=== PATIENT | male | born 1980 | race Caucasian/White ===

== ENCOUNTER 2017-08-19 10:25 | Emergency (ER) | payer SELFPAY ==
[~2017-08-19] VITALS: Ht 190.5 cm; Wt 95.0 kg
[~2017-08-19 10:25] MED LIST: CHLO.12%30 SWISH-SPIT; CLIN150 PO; IBUP800T23 PO; MMW SWISH-SPIT; PRED20 PO
[2017-08-19 10:28] VITALS: BP 121/71; PULSE 82; TEMP 97.6; O2SAT 99
[2017-08-19] MEDS ORDERED: SODIUM CHLORIDE 0.9% FLUSH 10 ML FLUSH IV FLUSH PRN (11:15)
--- NOTE | 2017-08-19 11:26 | PD ---
HPI Chief Complaint: GI Complaint Time Seen by Provider: 10:56 Travel History International Travel<30 days: No Contact w/Intl Traveler<30days: No Traveled to known affect area: No History of Present Illness HPI 37-year-old male presents the ED for evaluation of 3 day history of constipation. Patient states that he did not eat for 1 day and despite resuming eating has not began to have bowel movements. He endorses left lower quadrant tenderness and cramping pain. He states that the pain is maximally 10 , relieved by bowel movement. Patient states that he had a few mixed stools in the waiting room. He states he has not yet had a solid stool. Denies melena, hematochezia, BRBPR. Denies dysuria, hematuria, suprapubic pain. Denies fevers , chills, nausea, vomiting. He took mag citrate that he bought at [employer] last night. He states he had one previous episode like this last year that was resolved with mag citrate. He denies family history of GI cancers. He has never had a endoscopy. [facility] Past Medical History Medical History: Denies Significant Hx Diminished Hearing: No Tetanus Vaccination: > 5 Years Influenza Vaccination: No Past Surgical History Surgical History: No Previous Surgery Social History Alcohol Use: Yes Tobacco Use: Yes Substance Use: Yes (weed ) Allergies-Medications (Allergen,Severity, Reaction): Coded Allergies: No Known Allergies (Unverified Adverse Reaction, Unknown, 08/19/17) Reported Meds & Prescriptions Reported Meds & Active Scripts Active Reglan (Metoclopramide HCl) 5 Mg Tab 5 Mg PO TID Review of Systems Except as stated in HPI: all other systems reviewed are Neg Physical Exam Narrative GENERAL: Well-nourished, well-developed anxious white male in no acute distress. SKIN: Focused skin assessment warm/dry. HEAD: Normocephalic. EYES: No scleral icterus. No injection or drainage. NECK: Supple, trachea midline. No JVD or lymphadenopathy. CARDIOVASCULAR: Regular rate and rhythm without murmurs, gallops, or rubs. RESPIRATORY: Breath sounds clear and equal bilaterally. No accessory muscle use. GASTROINTESTINAL: Abdomen soft, nondistended. Tender to palpation in the left lower quadrant. No suprapubic tenderness. Hyperactive bowel sounds. RECTAL EXAM: No masses or tenderness, stool is brown. Guaiac negative. MUSCULOSKELETAL: No cyanosis, or edema. BACK: Nontender without obvious deformity. No CVA tenderness. Data Data Last Documented VS Vital Signs Date Time Temp Pulse Resp B/P (MAP) Pulse Ox O2 Delivery O2 Flow Rate FiO2 08/19/17 10:28 97.6 82 121/71 (88) 99 Orders Orders Iv Access Insert/Monitor (08/19/17 11:05) Ecg Monitoring (08/19/17 11:05) Oximetry (08/19/17 11:05) Sodium Chloride 0.9% Flush (Ns Flush) (08/19/17 11:15) Abdomen, Upright Only (08/19/17 11:05) Metoclopramide (Reglan) (08/19/17 12:00) Ed Discharge Order (08/19/17 11:51) [facility] Medical Decision Making Medical Screen Exam Complete: Yes Emergency Medical Condition: Yes Differential Diagnosis constipation versus fecal impaction versus less likely diverticulitis versus other Narrative Course 37-year-old male presents the ED for evaluation of 3 day history of constipation. Patient states that he did not eat for 1 day and despite resuming eating has not began to have bowel movements. He endorses left lower quadrant tenderness and cramping pain. He did mag citrate last night and had a few mixed bowel movements in the ED. Vitals reviewed. On exam the patient is nontoxic-appearing. Bowel sounds are hyperactive. He does have some tenderness in the left lower quadrant. Patient immediately had a mixed bowel movement right after exam. Rectal exam reveals no fecal impaction, masses or tenderness. Guaiac negative. I discussed the exam with the patient. He states that he is having improvement of his symptoms and is reassured by the fact that he is having bowel movements now. I offered to continue the workup with labs and possible CT of the belly to rule out diverticulitis. I offered the patient in upright x-ray to visualize any extreme constipation. This showed multiple air-fluid levels which is consistent with ileus. He is satisfied with this evaluation. He is agreeable to watchful waiting. He was given strict instructions to return to the ED if symptoms worsen. I believe that he is reliable for follow-up. The patient is stable and discharged home. [facility] Point of Care Internal Pos. & Neg. Controls: Passed Fecal Specimen Occult Blood: Negative Diagnosis Primary Impression: Constipation Qualified Codes: K59.00 - Constipation, unspecified Additional Impression: Abdominal cramping Referrals: Primary Care Physician Additional Instructions: Rest, hydrate. Return to normal, gentle activities as tolerated. Eat a well-balanced diet that includes plenty of fiber and fluids. Follow-up with the primary care provider. Return to the ED for worsening symptoms or any urgent or emergent medical condition. Scripts Metoclopramide (Reglan) 5 Mg Tab 5 MG PO TID, #9 TAB 0 Refills Prov: Julien Lopez MD 08/19/17 Disposition: 01 DISCHARGE HOME Condition: Stable Mohini Zhang August 19, 2017 11:26
--- NOTE | 2017-08-19 11:36 | RADRPT ---
EXAM DATE/TIME: 08/19/2017 11:28 [facility] COMPARISON: No previous studies available for comparison. INDICATIONS : Constipation and nausea. MEDICAL HISTORY : None. SURGICAL HISTORY : None. ENCOUNTER: Initial ACUITY: 3 days PAIN SCORE: 9/10 LOCATION: Left abdomen FINDINGS: A single erect view of the abdomen demonstrates the lower lungs to be clear. No evidence of free int raperitoneal gas. There are several air-fluid levels noted in predominately the colon without signifi cant dilatation. No significant dilatation of the small bowel is seen. CONCLUSION: Several air-fluid levels are seen throughout the colon suggestive of an ileus. Isak Riggs MD on August 19, 2017 at 11:32 Board Certified Radiologist. This report was verified electronically.
[2017-08-19] MEDS ORDERED: REGL5TAB PO (11:50)
[2017-08-19] MEDS ORDERED: METOCLOPRAMIDE HCL 10 MG TAB PO ONE (12:00)
== END 2017-08-19 12:29 | disposition home or self-care (01) ==
LOC: NEPD 10:25
DX: K59.00 Constipation, unspecified (principal); Z72.0 Tobacco use
CPT/HCPCS: 74018; 99284

== ENCOUNTER 2017-08-21 12:07 | Inpatient (IN) | payer SELFPAY ==
[2017-08-21] VITALS (8 sets, daily range): BP systolic 122–150; BP diastolic 67–85; PULSE 84–94; RESP 16–24; TEMP 98.5–99.1; O2SAT 96–100
[~2017-08-21] VITALS: Ht 190.5 cm; Wt 94.9 kg
[~2017-08-21 12:07] MED LIST changes: -CHLO.12%30 SWISH-SPIT; -CLIN150 PO; -IBUP800T23 PO; -MMW SWISH-SPIT; -PRED20 PO; +REGL5TAB PO
[2017-08-21] MEDS ORDERED: SODIUM CHLOR 0.9% 1000 ML INJ 1,000 ML IV SCH (12:21)
[2017-08-21] MEDS ORDERED: MAGNSOL2 PO (12:28)
[2017-08-21] MEDS ORDERED: DIATRIZOATE MEGLUM/DIATRIZOATE SOD 9 ML CUP ONE (12:29)
[2017-08-21] MEDS ORDERED: KETOROLAC TROMETHAMINE 30 MG/ML (IVP) VIAL IVP ONE (12:30)
[2017-08-21] MEDS ORDERED: SODIUM CHLORIDE 0.9% FLUSH 10 ML FLUSH IV FLUSH PRN ×2 (12:30→16:45)
--- NOTE | 2017-08-21 13:07 | PD ---
HPI Chief Complaint: GI Complaint Time Seen by Provider: 12:18 Travel History International Travel<30 days: No Contact w/Intl Traveler<30days: No Traveled to known affect area: No History of Present Illness HPI 37-year-old male with no significant medical history presents emergency department for evaluation of lower abdominal pain worsening over the last 3-4 days. Patient was seen and evaluated 2 days ago for constipation. He was discharged home and states he has been having loose bowel movements since then. He reports over the last 2 days he has developed intermittent hot flashes, fevers, T-max 101 last evening. He states his pain has become more intense and expands across the lower abdomen. He denies hematochezia or hematemesis. Denies any nausea or vomiting. Has no history of colitis or bright diverticulitis however his mother does. He has no other symptoms to report at this time. [facility] Past Medical History Medical History: Denies Significant Hx Diminished Hearing: No Tetanus Vaccination: Unknown Past Surgical History Surgical History: No Previous Surgery Social History Alcohol Use: Yes Tobacco Use: Yes Substance Use: Yes (MARIJUANA) Allergies-Medications (Allergen,Severity, Reaction): Coded Allergies: No Known Allergies (Unverified Adverse Reaction, Unknown, 08/19/17) Reported Meds & Prescriptions Reported Meds & Active Scripts Active Reglan (Metoclopramide HCl) 5 Mg Tab 5 Mg PO TID Reported Magnesium Citrate Liq (Magnesium Citrate) 300 Ml Liq 300 Ml PO DIRECTED Review of Systems Except as stated in HPI: all other systems reviewed are Neg Physical Exam Narrative GENERAL: Well-nourished male patient, appears nontoxic and without distress SKIN: Focused skin assessment warm/dry. HEAD: Atraumatic. Normocephalic. EYES: Pupils equal and round. No scleral icterus. No injection or drainage. ENT: No nasal bleeding or discharge. Mucous membranes pink and moist. NECK: Trachea midline. No JVD. CARDIOVASCULAR: Regular rate and rhythm. No murmur appreciated. RESPIRATORY: No accessory muscle use. Clear to auscultation. Breath sounds equal bilaterally. GASTROINTESTINAL: Abdomen soft, nondistended. Tenderness elicited palpation across the lower abdomen, greater on the right than the left with moderate guarding.. Hepatic and splenic margins not palpable. MUSCULOSKELETAL: No obvious deformities. No clubbing. No cyanosis. No edema. NEUROLOGICAL: Awake and alert. No obvious cranial nerve deficits. Motor grossly within normal limits. Normal speech. PSYCHIATRIC: Appropriate mood and affect; insight and judgment normal. Data Data Last Documented VS Vital Signs Date Time Temp Pulse Resp B/P (MAP) Pulse Ox O2 Delivery O2 Flow Rate FiO2 08/21/17 15:19 13 08/21/17 12:27 99 Room Air 08/21/17 12:11 98.5 94 122/80 (94) Orders Orders Complete Blood Count With Diff (08/21/17 12:21) Comprehensive Metabolic Panel (08/21/17 12:21) Lipase (08/21/17 12:21) Prothrombin Time / Inr (Pt) (08/21/17 12:21) Act Partial Throm Time (Ptt) (08/21/17 12:21) Urinalysis - C+S If Indicated (08/21/17 12:21) Ct Abd/Pel W Iv Contrast(Rout) (08/21/17 12:21) Iv Access Insert/Monitor (08/21/17 12:21) Ecg Monitoring (08/21/17 12:21) Oximetry (08/21/17 12:21) Sodium Chlor 0.9% 1000 Ml Inj (Ns 1000 M (08/21/17 12:21) Sodium Chloride 0.9% Flush (Ns Flush) (08/21/17 12:30) Ketorolac Inj (Toradol Inj) (08/21/17 12:30) Diatrizoate Liq ( Gastrobret Liq) (08/21/17 12:29) Oral Contrast - Adult (08/21/17 12:31) Piperacil-Tazo 3.375 Gm Premix (Zosyn 3. (08/21/17 16:00) Metronidazole 500 Mg Inj (Flagyl 500 Mg (08/21/17 16:00) Sodium Chlor 0.9% 1000 Ml Inj (Ns 1000 M (08/21/17 16:00) Labs Laboratory Tests Test 08/21/17 12:30 White Blood Count 15.4 TH/MM3 Red Blood Count 5.43 MIL/MM3 Hemoglobin 15.7 GM/DL Hematocrit 45.2 % Mean Corpuscular Volume 83.3 FL Mean Corpuscular Hemoglobin 28.9 PG Mean Corpuscular Hemoglobin Concent 34.7 % Red Cell Distribution Width 12.9 % Platelet Count 323 TH/MM3 Mean Platelet Volume 7.4 FL Neutrophils (%) (Auto) 83.2 % Lymphocytes (%) (Auto) 9.2 % Monocytes (%) (Auto) 6.8 % Eosinophils (%) (Auto) 0.3 % Basophils (%) (Auto) 0.5 % Neutrophils # (Auto) 12.8 TH/MM3 Lymphocytes # (Auto) 1.4 TH/MM3 Monocytes # (Auto) 1.0 TH/MM3 Eosinophils # (Auto) 0.1 TH/MM3 Basophils # (Auto) 0.1 TH/MM3 CBC Comment DIFF FINAL Differential Comment Prothrombin Time 11.2 SEC Prothromb Time International Ratio 1.1 RATIO Activated Partial Thromboplast Time 33.4 SEC Blood Urea Nitrogen 11 MG/DL Creatinine 1.00 MG/DL Random Glucose 95 MG/DL Total Protein 8.5 GM/DL Albumin 3.6 GM/DL Calcium Level 9.1 MG/DL Alkaline Phosphatase 87 U/L Aspartate Amino Transf (AST/SGOT) 9 U/L Alanine Aminotransferase (ALT/SGPT) 17 U/L Total Bilirubin 0.5 MG/DL Sodium Level 133 MEQ/L Potassium Level 4.0 MEQ/L Chloride Level 99 MEQ/L Carbon Dioxide Level 24.0 MEQ/L Anion Gap 10 MEQ/L Estimat Glomerular Filtration Rate 84 ML/MIN Lipase 61 U/L MDM Medical Decision Making Medical Screen Exam Complete: Yes Emergency Medical Condition: Yes Medical Record Reviewed: Yes Differential Diagnosis Diverticulitis versus colitis versus obstruction versus appendicitis Narrative Course 37-year-old male presents emergency department for evaluation. Patient appears without distress. His vital signs are stable. He does have lower abdominal tenderness greater on the right than the left. CT imaging will be done with IV contrast due to possibility of appendicitis. Patient is treated for pain. Laboratory Tests Test 08/21/17 12:30 White Blood Count 15.4 TH/MM3 Red Blood Count 5.43 MIL/MM3 Hemoglobin 15.7 GM/DL Hematocrit 45.2 % Mean Corpuscular Volume 83.3 FL Mean Corpuscular Hemoglobin 28.9 PG Mean Corpuscular Hemoglobin Concent 34.7 % Red Cell Distribution Width 12.9 % Platelet Count 323 TH/MM3 Mean Platelet Volume 7.4 FL Neutrophils (%) (Auto) 83.2 % Lymphocytes (%) (Auto) 9.2 % Monocytes (%) (Auto) 6.8 % Eosinophils (%) (Auto) 0.3 % Basophils (%) (Auto) 0.5 % Neutrophils # (Auto) 12.8 TH/MM3 Lymphocytes # (Auto) 1.4 TH/MM3 Monocytes # (Auto) 1.0 TH/MM3 Eosinophils # (Auto) 0.1 TH/MM3 Basophils # (Auto) 0.1 TH/MM3 CBC Comment DIFF FINAL Differential Comment Prothrombin Time 11.2 SEC Prothromb Time International Ratio 1.1 RATIO Activated Partial Thromboplast Time 33.4 SEC Blood Urea Nitrogen 11 MG/DL Creatinine 1.00 MG/DL Random Glucose 95 MG/DL Total Protein 8.5 GM/DL Albumin 3.6 GM/DL Calcium Level 9.1 MG/DL Alkaline Phosphatase 87 U/L Aspartate Amino Transf (AST/SGOT) 9 U/L Alanine Aminotransferase (ALT/SGPT) 17 U/L Total Bilirubin 0.5 MG/DL Sodium Level 133 MEQ/L Potassium Level 4.0 MEQ/L Chloride Level 99 MEQ/L Carbon Dioxide Level 24.0 MEQ/L Anion Gap 10 MEQ/L Estimat Glomerular Filtration Rate 84 ML/MIN Lipase 61 U/L Patient has a mild leukocytosis of 15.4. CT imaging is yet to be complete. Last Impressions Abdomen/Pelvis CT 08/21/17 1221 Signed Impressions: Service Date/Time: Monday, August 21, 2017 15:27 - CONCLUSION: 1. Findings consistent with moderate severity sigmoid diverticulitis and focal contained perforation. No definite abscess at this time although patient is at risk for developing abscess. Recommend repeat CT examination if patient does not improve or progress as expected on antibiotics. 2. Mild small bowel adynamic ileus. Noe Szymanski MD I discussed the patient my attending physician. Patient will be on IV Zosyn and Flagyl. I discussed the findings with Dr. Eugene, general surgeon economic analysis director. He requests admission to medicine. He will gladly consult on the patient. Calls placed to the hospitalist team. Diagnosis Primary Impression: Diverticulitis of intestine with perforation Qualified Codes: K57.80 - Diverticulitis of intestine, part unspecified, with perforation and abscess without bleeding Admitting Information Admitting Physician Requests: Admit Condition: Stable AdameBrittani balderas YOEL August 21, 2017 13:07
[2017-08-21 13:23] LABS: AUTOMATED NEUTROPHIL # 12.8 TH/MM3 (1.8-7.7); BASOPHIL # 0.1 TH/MM3 (0-0.2); BASOPHIL % 0.5 % (0.0-2.0); EOSINOPHIL # 0.1 TH/MM3 (0-0.4); EOSINOPHIL % 0.3 % (0.0-4.0); HEMATOCRIT 45.2 % (39.0-51.0); HEMOGLOBIN 15.7 GM/DL (13.0-17.0); LYMPH % 9.2 % (9.0-44.0); LYMPHOCYTE # 1.4 TH/MM3 (1.0-4.8); MEAN CELL VOLUME 83.3 FL (80.0-100.0); MEAN CORPUSCULAR HEMOGLOBIN 28.9 PG (27.0-34.0); MEAN CORPUSCULAR HGB CONC 34.7 % (32.0-36.0); MEAN PLATELET VOLUME 7.4 FL (7.0-11.0); MONO % 6.8 % (0.0-8.0); NEUT % 83.2 % (16.0-70.0); PLATELET COUNT 323 TH/MM3 (150-450); RED BLOOD COUNT 5.43 MIL/MM3 (4.50-5.90); RED CELL DISTRIBUTION WIDTH 12.9 % (11.6-17.2); WHITE BLOOD COUNT 15.4 TH/MM3 (4.0-11.0)
[2017-08-21 13:32] LABS: INTERNATIONAL NORMALIZED RATIO 1.1 RATIO; PROTHROMBIN TIME - PATIENT 11.2 SEC (9.8-11.6)
[2017-08-21 13:42] LABS: AST (GOT) 9 U/L (15-37); BLOOD UREA NITROGEN 11 MG/DL (7-18); CALCIUM 9.1 MG/DL (8.5-10.1); CHLORIDE 99 MEQ/L (98-107); GLOMERULAR FILTRATION RATE 84 ML/MIN (>89); GLUCOSE,RANDOM 95 MG/DL (74-106); SODIUM (NA) 133 MEQ/L (136-145)
[2017-08-21 13:44] LABS: ALT (GPT) 17 U/L (12-78)
[2017-08-21 13:45] LABS: ALKALINE PHOSPHATASE 87 U/L (45-117); TOTAL BILIRUBIN ADULT 0.5 MG/DL (0.2-1.0); TOTAL PROTEIN 8.5 GM/DL (6.4-8.2)
[2017-08-21 14:18] LABS: ALBUMIN 3.6 GM/DL (3.4-5.0)
--- NOTE | 2017-08-21 15:42 | RADRPT ---
EXAM DATE/TIME: 08/21/2017 15:27 [facility] COMPARISON: No previous studies available for comparison. INDICATIONS : Constipation,fever for two days,bilateral lower quadrant IV CONTRAST: 96 cc Omnipaque 350 (iohexol) IV ORAL CONTRAST: Prescribed oral contrast ingested. RADIATION DOSE: 9.45 CTDIvol (mGy) MEDICAL HISTORY : None SURGICAL HISTORY : None. ENCOUNTER: Initial ACUITY: 2 days PAIN SCALE: 6/10 LOCATION: Bilateral Abdomen TECHNIQUE: Volumetric scanning of the abdomen and pelvis was performed. Using automated exposure control and ad justment of the mA and/or kV according to patient size, radiation dose was kept as low as reasonably achievable to obtain optimal diagnostic quality images. DICOM format image data is available electro nically for review and comparison. FINDINGS: LOWER LUNGS: Minimal groundglass opacities at the lung bases. LIVER: Homogeneous density without lesion. There is no dilation of the biliary tree. No calcified gallston es. SPLEEN: Normal size without lesion. PANCREAS: Within normal limits. KIDNEYS: Normal in size and shape. There is no mass, stone or hydronephrosis. ADRENAL GLANDS: Within normal limits. VASCULAR: There is no aortic aneurysm. BOWEL/MESENTERY: Sigmoid diverticulosis with no inflammatory stranding and trace free air in the perisigmoid region. F ocal 1.9 cm collection of air near the distal sigmoid anteriorly may be extraluminal. No definite foc al drainable fluid collections at this time. Diffusely dilated small bowel loops consistent with adyn amic ileus. ABDOMINAL WALL: Within normal limits. RETROPERITONEUM: There is no lymphadenopathy. BLADDER: No wall thickening or mass. REPRODUCTIVE: Uterus is not visualized and may be surgically absent. INGUINAL: There is no lymphadenopathy or hernia. MUSCULOSKELETAL: Within normal limits for patient age. CONCLUSION: 1. Findings consistent with moderate severity sigmoid diverticulitis and focal contained perforation. No definite abscess at this time although patient is at risk for developing abscess. Recommend repea t CT examination if patient does not improve or progress as expected on antibiotics. 2. Mild small bowel adynamic ileus. Noe Szymanski MD on August 21, 2017 at 15:36 Board Certified Radiologist. This report was verified electronically.
[2017-08-21] MEDS ORDERED: metroNIDAZOLE 500 MG INJ 100 ML IV ONE (16:00)
[2017-08-21] MEDS ORDERED: SODIUM CHLOR 0.9% 1000 ML INJ 1,000 ML IV ONE (16:00)
[2017-08-21] MEDS ORDERED: PIPERACIL-TAZO 3.375 GM PREMIX 50 ML IV ONE (16:00)
--- NOTE | 2017-08-21 16:27 | HHI.HP ---
[facility] Service Family Medicine Primary Care Physician No Primary Care Physician Admission Diagnosis Diagnoses: International Travel<30 Days: No Contact w/Intl Traveler<30days: No Known Affected Area: No History of Present Illness 37 yr old M w/ no significant past medical history presents to the ED with fever and abdominal pain. Accompanied by girlfriend. Patient states that he had been having abdominal pain for the past 4 days. States that his pain started in the lower left quadrant and radiated to the right lower quadrant. He states that it is worsening, especially with food. He rates his pain as 8 out of 10. Patient was recently here 2 days ago 08/19 in the ED for abdominal pain. Patient was diagnosed with constipation. He was prescribed stool softeners, Reglan, and magnesium citrate. He was instructed to return to the ED for worsening symptoms. Reports that he has had a fever of 101 orally at home and chills. He endorses watery diarrhea, over 20 bowel movements a day due to the magnesium citrate. He denies nausea and vomiting. He has not been passing gas, but he has been burping. He endorses shallow breathing due to the pain. He states that his appetite has been normal, but "painful to eat." His last meal was a salad this morning. He denies chest pain, dysuria, back pain, and edema. Patient does not have PCP due to insurance issues. (Mireille Valente MD R1) Review of Systems Constitutional: COMPLAINS OF: Fever, Chills, DENIES: Change in appetite Eyes: DENIES: Blurred vision Ears, nose, mouth, throat: DENIES: Throat pain, Running Nose Respiratory: DENIES: Cough Cardiovascular: DENIES: Chest pain Gastrointestinal: COMPLAINS OF: Abdominal pain, Diarrhea, DENIES: Nausea, Vomiting Genitourinary: DENIES: Dysuria Musculoskeletal: DENIES: Back pain Integumentary: DENIES: Rash Neurologic: DENIES: Headache (Mireille Valente MD R1) Past Family Social History Past Medical History None Past Surgical History None Reported Medications Reported Meds & Active Scripts Active Reglan (Metoclopramide HCl) 5 Mg Tab 5 Mg PO TID Reported Magnesium Citrate Liq (Magnesium Citrate) 300 Ml Liq 300 Ml PO DIRECTED (Mireille Valente MD R1) Allergies: Coded Allergies: No Known Allergies (Unverified Allergy, Unknown, 08/21/17) Family History Mom and sister with history of colitis and diverticulitis "lazy bowel" Social History Works at [employer] Quit smoking years ago, but started back about 1 month ago, started in high, on and off, 1/2 ppd, 1-2 cigarettes/day Denies alcohol use Endorses MJ use, everyday, for years (Mireille Valente MD R1) Physical Exam Vital Signs Vital Signs Date Time Temp Pulse Resp B/P (MAP) Pulse Ox O2 Delivery O2 Flow Rate FiO2 08/21/17 15:19 13 08/21/17 12:27 16 99 Room Air 08/21/17 12:17 16 08/21/17 12:11 98.5 94 16 122/80 (94) 99 Physical Exam GENERAL: This is a well-nourished, well-developed patient, in no apparent distress. SKIN: No rashes, ecchymoses or lesions. Cool and dry. HEAD: Atraumatic. Normocephalic. No temporal or scalp tenderness. EYES: Pupils equal round and reactive. Extraocular motions intact. No scleral icterus. No injection or drainage. ENT: Nose without bleeding, purulent drainage or septal hematoma. Throat without erythema, tonsillar hypertrophy or exudate. Uvula midline. Airway patent. NECK: Trachea midline. No JVD or lymphadenopathy. Supple, nontender, no meningeal signs. CARDIOVASCULAR: Regular rate and rhythm without murmurs, gallops, or rubs. RESPIRATORY: Clear to auscultation. Breath sounds equal bilaterally. No wheezes , rales, or rhonchi. GASTROINTESTINAL: Abdomen soft, tender in the lower left and lower mid quadrant. Rebound tenderness. No hepato-splenomegaly, or palpable masses. No guarding. Positive bowel sounds. MUSCULOSKELETAL: Extremities without clubbing, cyanosis, or edema. No joint tenderness, effusion, or edema noted. No calf tenderness. Negative Homans sign bilaterally. NEUROLOGICAL: Awake and alert. Normal speech. Laboratory Laboratory Tests Test 08/21/17 12:30 White Blood Count 15.4 Red Blood Count 5.43 Hemoglobin 15.7 Hematocrit 45.2 Mean Corpuscular Volume 83.3 Mean Corpuscular Hemoglobin 28.9 Mean Corpuscular Hemoglobin Concent 34.7 Red Cell Distribution Width 12.9 Platelet Count 323 Mean Platelet Volume 7.4 Neutrophils (%) (Auto) 83.2 Lymphocytes (%) (Auto) 9.2 Monocytes (%) (Auto) 6.8 Eosinophils (%) (Auto) 0.3 Basophils (%) (Auto) 0.5 Neutrophils # (Auto) 12.8 Lymphocytes # (Auto) 1.4 Monocytes # (Auto) 1.0 Eosinophils # (Auto) 0.1 Basophils # (Auto) 0.1 CBC Comment DIFF FINAL Differential Comment Prothrombin Time 11.2 Prothromb Time International Ratio 1.1 Activated Partial Thromboplast Time 33.4 Blood Urea Nitrogen 11 Creatinine 1.00 Random Glucose 95 Total Protein 8.5 Albumin 3.6 Calcium Level 9.1 Alkaline Phosphatase 87 Aspartate Amino Transf (AST/SGOT) 9 Alanine Aminotransferase (ALT/SGPT) 17 Total Bilirubin 0.5 Sodium Level 133 Potassium Level 4.0 Chloride Level 99 Carbon Dioxide Level 24.0 Anion Gap 10 Estimat Glomerular Filtration Rate 84 Lipase 61 (Mireille Valente MD R1) Result Diagram: 08/21/17 1230 08/21/17 1230 Septic Shock Reassessment Septic shock perfusion: reassessment completed (Mireille Valente MD R1) Caprini VTE Risk Assessment Caprini VTE Risk Assessment: No/Low Risk (score <= 1) Caprini Risk Assessment Model Point Value = 1 Point Value = 2 Point Value = 3 Point Value = 5 Age 41-60 Minor surgery BMI > 25 kg/m2 Swollen legs Varicose veins or History of unexplained or recurrent spontaneous Oral contraceptives or hormone replacement Sepsis (< 1 month) Serious lung disease, including pneumonia (< 1 month) Abnormal pulmonary function Acute myocardial infarction Congestive heart failure (< 1 month) History of inflammatory bowel disease Medical patient at bed rest Age 61-74 Arthroscopic surgery Major open surgery (> 45 min) Laparoscopic surgery (> 45 min) Malignancy Confined to bed (> 72 hours) Immobilizing plaster cast Central venous access Age >= 75 History of VTE Family history of VTE Factor V Leiden Prothrombin [id number] Lupus anticoagulant Anticardiolipin antibodies Elevated serum homocysteine Heparin-induced thrombocytopenia Other congenital or acquired thrombophilia Stroke (< 1 month) Elective arthroplasty Hip, pelvis, or leg fracture Acute spinal cord injury (< 1 month) Prophylaxis Regimen Total Risk Factor Score Risk Level Prophylaxis Regimen 0-1 Low Early ambulation 2 Moderate Order ONE of the following: *Sequential Compression Device (SCD) *Heparin 5000 units SQ BID 3-4 Higher Order ONE of the following medications: *Heparin 5000 units SQ TID *Enoxaparin/Lovenox 40 mg SQ daily (WT < 150 kg, CrCl > 30 mL/min) *Enoxaparin/Lovenox 30 mg SQ daily (WT < 150 kg, CrCl > 10-29 mL/min) *Enoxaparin/Lovenox 30 mg SQ BID (WT < 150 kg, CrCl > 30 mL/min) AND/OR *Sequential Compression Device (SCD) 5 or more Highest Order ONE of the following medications: *Heparin 5000 units SQ TID (Preferred with Epidurals) *Enoxaparin/Lovenox 40 mg SQ daily (WT < 150 kg, CrCl > 30 mL/min) *Enoxaparin/Lovenox 30 mg SQ daily (WT < 150 kg, CrCl > 10-29 mL/min) *Enoxaparin/Lovenox 30 mg SQ BID (WT < 150 kg, CrCl > 30 mL/min) AND *Sequential Compression Device (SCD) (Mireille Valente MD R1) Assessment and Plan Assessment and Plan 37-year-old male with no significant past medical history admitted for sigmoid diverticulitis with isolated perforation. Patient meets sepsis criteria. Code Status Full code Discussed Condition With Dr. Valente and Dr. Umana (Mireille Valente MD R1) Problem List: (1) Sepsis ICD Codes: A41.9 - Sepsis, unspecified organism Status: Resolved Plan: Patient meets sepsis criteria due to tachycardia and elevated WBC on admission with known source of sigmoid diverticulitis. See plan below. (2) Diverticulitis of intestine with perforation ICD Codes: K57.80 - Diverticulitis of intestine, part unspecified, with perforation and abscess without bleeding Status: Acute Plan: Patient meets sepsis criteria with known sigmoid diverticulitis and isolated perforation on CT. Labs & Imaging: WBC elevated at 15.4 Lactic acid pending BUN, very mild hyponatremia at 133, BUN of 11, creatinine of 1 UA, trace blood and ketones, bacteria Urine culture pending Hemoccult pending UDS and C. difficile PCR pending EKG pending Abdomen/pelvis CT menstruates moderate severity sigmoid diverticulitis and focal contained perforation. No definite abscess at this time although patient is at risk for developing abscess. Recommend repeat CT examination patient does not improve or progress as expected on antibiotics. Mild small bowel adynamic ileus. Treatment & Plan: General surgery consulted, ED physician discussed findings with Dr. Ernst Davis recommendations Patient will be transferred to ICU for close monitoring Continuous cardiac monitoring/telemetry N.p.o. s/p 1 dose of metronidazole 500 mg IV and 1 dose of 3.375 Zosyn IV Continue patient on Zosyn 3.375 g IV every 6 hours Pain controlled with IV Tylenol every 6 as needed Maintenance IV fluids at 140mls/hr Zofran 4 mg every 6 as needed for nausea and vomiting (3) Nutrition, metabolism, and development symptoms ICD Codes: R63.8 - Other symptoms and signs concerning food and fluid intake Plan: Diet: N.p.o. Fluids: NS 140mls/hr Continuous telemetry, monitor vitals every 4, monitor I's and O's DVT ppx: SCDs Case management consulted (Mireille Valente MD R1) Problem List: (1) Sepsis ICD Codes: A41.9 - Sepsis, unspecified organism Status: Resolved Plan: Patient meets sepsis criteria due to tachycardia and elevated WBC on admission with known source of sigmoid diverticulitis. See plan below. (2) Diverticulitis of intestine with perforation ICD Codes: K57.80 - Diverticulitis of intestine, part unspecified, with perforation and abscess without bleeding Status: Acute Plan: Patient meets sepsis criteria with known sigmoid diverticulitis and isolated perforation on CT. Labs & Imaging: WBC elevated at 15.4 Lactic acid pending BUN, very mild hyponatremia at 133, BUN of 11, creatinine of 1 UA, trace blood and ketones, bacteria Urine culture pending Hemoccult pending UDS and C. difficile PCR pending EKG pending Abdomen/pelvis CT menstruates moderate severity sigmoid diverticulitis and focal contained perforation. No definite abscess at this time although patient is at risk for developing abscess. Recommend repeat CT examination patient does not improve or progress as expected on antibiotics. Mild small bowel adynamic ileus. Treatment & Plan: General surgery consulted, ED physician discussed findings with Dr. Ernst Davis recommendations Patient will be transferred to ICU for close monitoring Continuous cardiac monitoring/telemetry N.p.o. s/p 1 dose of metronidazole 500 mg IV and 1 dose of 3.375 Zosyn IV Continue patient on Zosyn 3.375 g IV every 6 hours Pain controlled with IV Tylenol every 6 as needed Maintenance IV fluids at 140mls/hr Zofran 4 mg every 6 as needed for nausea and vomiting (3) Nutrition, metabolism, and development symptoms ICD Codes: R63.8 - Other symptoms and signs concerning food and fluid intake Plan: Diet: N.p.o. Fluids: NS 140mls/hr Continuous telemetry, monitor vitals every 4, monitor I's and O's DVT ppx: SCDs Case management consulted See the residents documentation for details. I saw and evaluated the patient regarding the north portions of this evaluation and agree with the residents findings and plans as written. Parts of this note were created using [employer] voice recognition software program. While efforts were made to correct any mistakes made by this software, some mistakes, errors, and omissions may remain in the final note that were not caught when the note was originally created. Plan of care was discussed and agreed upon with the patient as specifically documented in the above note. An opportunity to ask questions with explanation was provided. Patient voiced understanding on all information reviewed and discussed. (Nico Valente MD) Physician Certification 2 Midnight Certification Type: Admission for Inpatient Services Order for Inpatient Services The services are ordered in accordance with Medicare regulations or non- Medicare payer requirements, as applicable. In the case of services not specified as inpatient-only, they are appropriately provided as inpatient services in accordance with the 2-midnight benchmark. Estimated LOS (days): 2 2 days is the estimated time the patient will need to remain in the hospital, assuming treatment plan goals are met and no additional complications. Post-Hospital Plan: Home (Mireille Valente MD R1) Problem Qualifiers (1) Sepsis: Qualified Codes: A41.9 - Sepsis, unspecified organism (2) Diverticulitis of intestine with perforation: Qualified Codes: K57.80 - Diverticulitis of intestine, part unspecified, with perforation and abscess without bleeding Mireille Valente MD R1 August 21, 2017 16:27 Nico Valente MD August 23, 2017 14:19
[2017-08-21] MEDS ORDERED: IOHEXOL 350 MG/ML 10 ML VIAL (for RAD DIAG) IVCONTRAST ONE (16:40)
[2017-08-21] MEDS ORDERED: NALOXONE HCL 0.4 MG/ML AMP IV PUSH PRN (16:45)
[2017-08-21] MEDS ORDERED: ACETAMINOPHEN 1000 MG/100 ML 100 ML IV PRN (16:45)
[2017-08-21] MEDS ORDERED: MORPHINE SULFATE 4 MG/ML INJ IV PRN (17:00)
[2017-08-21] MEDS: SODIUM CHLOR 0.9% 1000 ML INJ 1,000 ML IV SCH (17:57)
[2017-08-21 18:20] LABS: BILIRUBIN, URINE NEG (NEG); BLOOD, URINE TRACE (NEG); GLUCOSE,URINE NEG (NEG); KETONE, URINE 10 mg/dL (NEG); NITRITE,URINE NEG (NEG); PH, URINE 5.5 (5.0-8.5); URINE COLOR LIGHT-YELLOW (YELLW/STRAW); URINE LEUKOCYTE ESTERASE NEG (NEG)
[2017-08-21 18:26] LABS: BACTERIA, URINE RARE /hpf
[2017-08-21] MEDS: ONDANSETRON ODT 4 MG TAB SL PRN (18:35)
[2017-08-21] MEDS ORDERED: cloNIDine HCL 0.1 MG TAB PO PRN (18:45)
[2017-08-21] MEDS: PIPERACIL-TAZO 3.375 GM PREMIX 50 ML IV SCH (21:51)
[2017-08-21] MEDS: SODIUM CHLORIDE 0.9% FLUSH 10 ML FLUSH IV FLUSH SCH (22:21)
[2017-08-21] MEDS ORDERED: METOCLOPRAMIDE HCL 10 MG/2 ML VIAL IV PUSH PRN (23:00)
[2017-08-22] VITALS (8 sets, daily range): BP systolic 110–129; BP diastolic 56–90; PULSE 66–97; RESP 14–21; TEMP 98.2–99; O2SAT 96–98
[2017-08-22] MEDS: SODIUM CHLOR 0.9% 1000 ML INJ 1,000 ML IV SCH ×3 (03:03→22:02)
[2017-08-22] MEDS: ONDANSETRON ODT 4 MG TAB SL PRN (03:03)
[2017-08-22] MEDS: PIPERACIL-TAZO 3.375 GM PREMIX 50 ML IV SCH ×4 (04:50→22:01)
[2017-08-22 06:11] LABS: BICARBONATE 22.3 MEQ/L (21.0-32.0); CALCIUM 8.6 MG/DL (8.5-10.1); CREATININE 0.86 MG/DL (0.60-1.30)
[2017-08-22 07:07] LABS: AUTOMATED NEUTROPHIL # 7.7 TH/MM3 (1.8-7.7); BASOPHIL % 0.2 % (0.0-2.0); EOSINOPHIL # 0.1 TH/MM3 (0-0.4); HEMATOCRIT 41.2 % (39.0-51.0); LYMPH % 9.1 % (9.0-44.0); LYMPHOCYTE # 0.9 TH/MM3 (1.0-4.8); MEAN CELL VOLUME 83.5 FL (80.0-100.0); MEAN CORPUSCULAR HEMOGLOBIN 28.4 PG (27.0-34.0); MEAN PLATELET VOLUME 7.7 FL (7.0-11.0); MONO % 9.2 % (0.0-8.0); MONOCYTE # 0.9 TH/MM3 (0-0.9); NEUT % 80.5 % (16.0-70.0); PLATELET COUNT 281 TH/MM3 (150-450); RED BLOOD COUNT 4.93 MIL/MM3 (4.50-5.90); RED CELL DISTRIBUTION WIDTH 13.1 % (11.6-17.2); WHITE BLOOD COUNT 9.5 TH/MM3 (4.0-11.0)
[2017-08-22] MEDS: SODIUM CHLORIDE 0.9% FLUSH 10 ML FLUSH IV FLUSH SCH ×2 (09:00→22:01)
--- NOTE | 2017-08-22 10:05 | HHI.FPPN ---
Subjective Remarks No acute events overnight. Patient lying in bed. Girlfriend at bedside. Patient reports that he is doing well. His pain in his midepigastric region is 1 /10. States that he is very hungry and ready to eat. He still endorses diarrhea. 8 bowel movements since admission. He associates this with stool softeners and magnesium citrate that he took prior to being admitted. He denies fevers, chest pain, shortness of breath, and vomiting. Patient stable to transfer to stepdown unit. (Mireille Valente MD R1) Objective Vitals Vital Signs Date Time Temp Pulse Resp B/P (MAP) Pulse Ox O2 Delivery O2 Flow Rate FiO2 08/22/17 08:00 98.8 76 14 116/56 (76) 98 08/22/17 08:00 98 Room Air 08/22/17 08:00 76 08/22/17 06:00 66 08/22/17 04:00 98.8 88 21 116/63 (80) 98 08/22/17 04:00 88 08/22/17 02:00 83 08/22/17 00:00 99.0 76 18 110/60 (77) 96 08/22/17 00:00 76 08/21/17 22:00 88 08/21/17 20:00 99.1 86 24 124/67 (86) 98 08/21/17 19:31 08/21/17 19:02 93 18 140/77 (98) 96 08/21/17 18:00 84 16 144/80 (101) 100 Room Air 08/21/17 16:00 86 22 141/76 (97) 100 Room Air 08/21/17 15:19 13 08/21/17 14:00 85 21 150/85 (106) 99 Room Air 08/21/17 12:27 16 99 Room Air 08/21/17 12:17 16 08/21/17 12:11 98.5 94 16 122/80 (94) 99 I/O 08/21/17 08/21/17 08/21/17 08/22/17 08/22/17 08/22/17 07:00 15:00 23:00 07:00 15:00 23:00 Intake Total 2300 ml 0 ml Balance 2300 ml 0 ml Intake Oral 0 ml IV Total 2300 ml # Voids 1 6 # Bowel Movements 2 6 (Mireille Valente MD R1) Result Diagram: 08/22/1744808/22/17448 Objective Remarks GENERAL: This is a well-nourished, well-developed patient, in no apparent distress. SKIN: No rashes, ecchymoses or lesions. Cool and dry. HEAD: Atraumatic. Normocephalic. No temporal or scalp tenderness. EYES: Pupils equal round and reactive. Extraocular motions intact. No scleral icterus. No injection or drainage. ENT: Nose without bleeding, purulent drainage or septal hematoma. Throat without erythema, tonsillar hypertrophy or exudate. Uvula midline. Airway patent. NECK: Trachea midline. No JVD or lymphadenopathy. Supple, nontender, no meningeal signs. CARDIOVASCULAR: Regular rate and rhythm without murmurs, gallops, or rubs. RESPIRATORY: Clear to auscultation. Breath sounds equal bilaterally. No wheezes , rales, or rhonchi. GASTROINTESTINAL: Abdomen soft, no tenderness. No hepato-splenomegaly, or palpable masses. No guarding. Positive bowel sounds. MUSCULOSKELETAL: Extremities without clubbing, cyanosis, or edema. No joint tenderness, effusion, or edema noted. No calf tenderness. Negative Homans sign bilaterally. NEUROLOGICAL: Awake and alert. Normal speech. (Mireille Valente MD R1) A/P Assessment and Plan 37-year-old male with no significant past medical history admitted for sigmoid diverticulitis with isolated perforation. Patient meets sepsis criteria. Patient treated with IV fluids and antibiotics. General surgery consulted. Discharge Planning General surgery consult pending Anticipate discharge in 1-2 days (Mireille Valente MD R1) Problem List: (1) Sepsis ICD Codes: A41.9 - Sepsis, unspecified organism Status: Resolved Plan: Patient meets sepsis criteria due to tachycardia and elevated WBC on admission with known source of sigmoid diverticulitis. See plan below. (2) Diverticulitis of intestine with perforation ICD Codes: K57.80 - Diverticulitis of intestine, part unspecified, with perforation and abscess without bleeding Status: Acute Plan: Patient meets sepsis criteria with known sigmoid diverticulitis and isolated perforation on CT. Labs & Imaging: WBC elevated at 15.4 Lactic acid 1.1 UA, trace blood and ketones, bacteria Hemoccult negative C. difficile PCR negative UDS positive for marijuana EKG normal sinus rhythm Abdomen/pelvis CT menstruates moderate severity sigmoid diverticulitis and focal contained perforation. No definite abscess at this time although patient is at risk for developing abscess. Recommend repeat CT examination patient does not improve or progress as expected on antibiotics. Mild small bowel adynamic ileus. Treatment & Plan: General surgery consulted, ED physician discussed findings with Dr. Dukes Appreciate recommendations N.p.o. s/p 1 dose of metronidazole 500 mg IV and 1 dose of 3.375 Zosyn IV in the ED Continue patient on Zosyn 3.375 g IV every 6 hours Pain controlled with IV Tylenol every 6 as needed Maintenance IV fluids at 140mls/hr Zofran 4 mg every 6 as needed for nausea and vomiting (3) Nutrition, metabolism, and development symptoms ICD Codes: R63.8 - Other symptoms and signs concerning food and fluid intake Plan: Diet: N.p.o. Fluids: NS 140mls/hr monitor vitals every 4, monitor I's and O's DVT ppx: SCDs Case management consulted (Mireille Valente MD R1) Problem List: (1) Sepsis ICD Codes: A41.9 - Sepsis, unspecified organism Status: Resolved Plan: Patient meets sepsis criteria due to tachycardia and elevated WBC on admission with known source of sigmoid diverticulitis. See plan below. (2) Diverticulitis of intestine with perforation ICD Codes: K57.80 - Diverticulitis of intestine, part unspecified, with perforation and abscess without bleeding Status: Acute Plan: Patient meets sepsis criteria with known sigmoid diverticulitis and isolated perforation on CT. Labs & Imaging: WBC elevated at 15.4 Lactic acid 1.1 UA, trace blood and ketones, bacteria Hemoccult negative C. difficile PCR negative UDS positive for marijuana EKG normal sinus rhythm Abdomen/pelvis CT menstruates moderate severity sigmoid diverticulitis and focal contained perforation. No definite abscess at this time although patient is at risk for developing abscess. Recommend repeat CT examination patient does not improve or progress as expected on antibiotics. Mild small bowel adynamic ileus. Treatment & Plan: General surgery consulted, ED physician discussed findings with Dr. Dukes Appreciate recommendations N.p.o. s/p 1 dose of metronidazole 500 mg IV and 1 dose of 3.375 Zosyn IV in the ED Continue patient on Zosyn 3.375 g IV every 6 hours Pain controlled with IV Tylenol every 6 as needed Maintenance IV fluids at 140mls/hr Zofran 4 mg every 6 as needed for nausea and vomiting (3) Nutrition, metabolism, and development symptoms ICD Codes: R63.8 - Other symptoms and signs concerning food and fluid intake Plan: Diet: N.p.o. Fluids: NS 140mls/hr monitor vitals every 4, monitor I's and O's DVT ppx: SCDs Case management consulted See the residents documentation for details. I saw and evaluated the patient regarding the north portions of this evaluation and agree with the residents findings and plans as written. Parts of this note were created using [employer] voice recognition software program. While efforts were made to correct any mistakes made by this software, some mistakes, errors, and omissions may remain in the final note that were not caught when the note was originally created. Plan of care was discussed and agreed upon with the patient as specifically documented in the above note. An opportunity to ask questions with explanation was provided. Patient voiced understanding on all information reviewed and discussed. (Nico Valente MD) Problem Qualifiers (1) Sepsis: Qualified Codes: A41.9 - Sepsis, unspecified organism (2) Diverticulitis of intestine with perforation: Qualified Codes: K57.80 - Diverticulitis of intestine, part unspecified, with perforation and abscess without bleeding Mireille Valente MD August 22, 2017 10:05 Nico Valente MD August 23, 2017 14:26
--- NOTE | 2017-08-22 15:44 | MB ---
cc: Raleigh Souza MD DATE: 08/22/2017 REASON FOR CONSULTATION: Acute diverticulitis with diverticulosis, abdominal pain, intra-abdominal pelvic abscess. HISTORY OF PRESENT ILLNESS: This is a 37-year-old male without any medical history who was in the ER a few days ago, at which point he had left lower quadrant pain. He was placed on antibiotics and sent home. He came the next day back with worsening pain, especially after taking food. The patient underwent CT scan, which revealed acute sigmoid diverticulitis with a small pericolic pelvic abscess. He is now admitted for further care. No nausea and no vomiting. PAST MEDICAL HISTORY: The patient denies. PAST SURGICAL HISTORY: The patient denies, although he says he takes laxatives occasionally. SOCIAL HISTORY: The patient works as a stock or delivery clerk. Quit smoking several years ago and now started again. PHYSICAL EXAMINATION: GENERAL: Reveals a 37-year-old male, appearing slightly older than his actual age. HEENT: Normocephalic. No trauma to the head. HEENT: Pupils equally reactive, extraocular muscles intact. NECK: Supple. Bilateral carotid pulses. No bruits. CHEST: Clear, bilateral breath sounds. HEART: Regular rate and rhythm. ABDOMEN: Soft. Hypoactive bowel sounds. On palpation, tender in the left lower quadrant, but no rebound or guarding is noted. No masses are noted. Pelvis is normal. EXTREMITIES: Grossly within normal limits, but good proximal distal pulses. No signs of vascular deficit. BACK: Normal. NEUROLOGIC: The patient is grossly intact. IMPRESSION AND RECOMMENDATIONS: I reviewed laboratory and diagnostic procedures. The patient has clearly acute diverticulitis with diverticulosis and a small pericolic abscess. In the best case scenario, several days of IV antibiotics with hydration, followed by p.o. antibiotic should take care of this. At some point in the future, the patient will need to have a colonoscopy, probably about a month or so from now, to evaluate his bowel. This is quite early to have the problem of this nature and therefore, it is essential that the colon is evaluated for possible other problems. The patient should be now placed on a low residue diet and then when the whole thing resolves in about a month on a high residue high fiber diet, hopefully, this is going to take care of the problem. If the patient has recurrent attacks of acute diverticulitis, then he might require sigmoid resection because clearly he is a young mike and has to live all of his life with this otherwise. I will talk to and follow the patient with you here and then in my office. Thank you much for this referral. MD MIRZA Pérez/ELIGIO , 03:15 PM , 03:43 PM
--- NOTE | 2017-08-22 21:06 | EKG ---
Date Performed: 08/21/2017 Time Performed: 22:37:28 PTAGE: 37 years EKG: Sinus rhythm WITH SINUS ARRHYTHMIA NORMAL ECG NO PREVIOUS TRACING DOCTOR: Teja Celeste Interpretating Date/Time 08/22/2017 21:05:50
[2017-08-23] VITALS: BP 133/74; PULSE 89; RESP 20; TEMP 98.8; O2SAT 98
[2017-08-23] MEDS: PIPERACIL-TAZO 3.375 GM PREMIX 50 ML IV SCH ×2 (04:37→10:28)
[2017-08-23] MEDS: SODIUM CHLOR 0.9% 1000 ML INJ 1,000 ML IV SCH ×2 (04:37→11:44)
[2017-08-23 05:46] LABS: HEMOGLOBIN 13.4 GM/DL (13.0-17.0); MEAN CELL VOLUME 84.5 FL (80.0-100.0); MEAN CORPUSCULAR HEMOGLOBIN 28.4 PG (27.0-34.0); MEAN CORPUSCULAR HGB CONC 33.6 % (32.0-36.0); MEAN PLATELET VOLUME 7.2 FL (7.0-11.0); PLATELET COUNT 319 TH/MM3 (150-450); RED BLOOD COUNT 4.74 MIL/MM3 (4.50-5.90); RED CELL DISTRIBUTION WIDTH 13.2 % (11.6-17.2); WHITE BLOOD COUNT 7.6 TH/MM3 (4.0-11.0)
[2017-08-23 06:09] LABS: CALCIUM 8.7 MG/DL (8.5-10.1); CREATININE 0.9 MG/DL (0.60-1.30)
[2017-08-23 08:00] VITALS: BP 124/76; PULSE 80; RESP 18; TEMP 98.8; O2SAT 99
--- NOTE | 2017-08-23 08:53 | HHI.FPPN ---
Subjective Remarks Patient is doing well, had no issues overnight. He has had two loose bowel movements today, but feels they are starting to be more formed. He had LLQ abdominal pain with bowel movements, but doesn't have pain otherwise. He denies nausea or vomiting and is tolerating a regular diet. He is also ambulating well. He denies chest pain, shortness of breath, dysuria, fever, chills, or leg edema. Remaining ROS is negative. (Crystal Umana MD R2) Objective Vitals Vital Signs Date Time Temp Pulse Resp B/P (MAP) Pulse Ox O2 Delivery O2 Flow Rate FiO2 08/23/17 08:00 98.8 80 18 124/76 (92) 99 08/23/17 00:00 98.8 89 20 133/74 (93) 98 08/22/17 20:00 98.7 84 20 125/78 (94) 98 08/22/17 16:00 98.2 97 16 129/90 (103) 98 08/22/17 12:00 98.3 77 15 124/59 (80) 97 I/O 08/22/17 08/22/17 08/22/17 08/23/17 08/23/17 08/23/17 07:00 15:00 23:00 07:00 15:00 23:00 Intake Total 0 ml 240 ml 1050 ml Output Total 1800 ml Balance 0 ml 240 ml -750 ml Intake Oral 0 ml 240 ml IV Total 1050 ml Output Urine Total 1800 ml # Voids 6 2 # Bowel Movements 6 5 0 (Crystal Umana MD R2) Result Diagram: 08/23/17 0528 08/23/17 0528 Imaging Last Impressions Abdomen/Pelvis CT 08/21/17 1221 Signed Impressions: Service Date/Time: Monday, August 21, 2017 15:27 - CONCLUSION: 1. Findings consistent with moderate severity sigmoid diverticulitis and focal contained perforation. No definite abscess at this time although patient is at risk for developing abscess. Recommend repeat CT examination if patient does not improve or progress as expected on antibiotics. 2. Mild small bowel adynamic ileus. Noe Szymanski MD Objective Remarks GENERAL: This is a well-nourished, well-developed patient, in no apparent distress. SKIN: No rashes, ecchymoses or lesions. Cool and dry. CARDIOVASCULAR: Regular rate and rhythm without murmurs, gallops, or rubs. RESPIRATORY: Clear to auscultation. Breath sounds equal bilaterally. No wheezes , rales, or rhonchi. GASTROINTESTINAL: Abdomen soft, mild tenderness in the LLQ and RLQ. No hepato- splenomegaly, or palpable masses. No rebound or guarding. Positive bowel sounds. MUSCULOSKELETAL: Extremities without clubbing, cyanosis, or edema. NEUROLOGICAL: Awake and alert. Normal speech. (Crystal Umana MD R2) A/P Assessment and Plan 37-year-old male with no significant past medical history admitted for sigmoid diverticulitis with isolated perforation. Patient met sepsis criteria upon admission. Patient treated with IV fluids and antibiotics. General surgery was consulted. Discharge Planning Anticipate discharge in 1-2 days (Crystal Umana MD R2) Problem List: (1) Diverticulitis of intestine with perforation ICD Codes: K57.80 - Diverticulitis of intestine, part unspecified, with perforation and abscess without bleeding Status: Acute Plan: Treatment & Plan: Patient is doing well, he is not complaining of any abdominal pain, and his WBC is now 7.6. Continue with regular diet as tolerated. He was encouraged to take it slow. Pain controlled with IV Tylenol every 6 as needed, however he has not needed pain medications for 2 days now. Continue maintenance IV fluids at 140mls/hr continue Zofran 4 mg every 6 as needed for nausea and vomiting General surgery was consulted, and surgery is not recommended at this time. Gen surg agrees with the plan to continue IV Zosyn Q6hrs, and will discuss with them to come up with appropriate time to switch to PO antibiotics. (2) Sepsis ICD Codes: A41.9 - Sepsis, unspecified organism Status: Resolved Plan: Resolved Patient initially met sepsis criteria due to tachycardia and elevated WBC on admission with known source of sigmoid diverticulitis. 2L bolus of IV fluids and one dose of IV Zosyn 3.375g was given in the ED on . Maintenance fluids given at 140ml/hr Continue IV Zosyn 3.375g Q6hrs (08/21/2017 - ) WBC now 7.6 and vital signs all WNL (3) Nutrition, metabolism, and development symptoms ICD Codes: R63.8 - Other symptoms and signs concerning food and fluid intake Plan: Diet: regular diet Fluids: NS 140mls/hr monitor vitals every 4, monitor I's and O's DVT ppx: Lovenox 40mg subcu daily (Crystal Umana MD R2) Problem List: (1) Diverticulitis of intestine with perforation ICD Codes: K57.80 - Diverticulitis of intestine, part unspecified, with perforation and abscess without bleeding Status: Acute Plan: Treatment & Plan: Patient is doing well, he is not complaining of any abdominal pain, and his WBC is now 7.6. Continue with regular diet as tolerated. He was encouraged to take it slow. Pain controlled with IV Tylenol every 6 as needed, however he has not needed pain medications for 2 days now. Continue maintenance IV fluids at 140mls/hr continue Zofran 4 mg every 6 as needed for nausea and vomiting General surgery was consulted, and surgery is not recommended at this time. Gen surg agrees with the plan to continue IV Zosyn Q6hrs, and will discuss with them to come up with appropriate time to switch to PO antibiotics. (2) Sepsis ICD Codes: A41.9 - Sepsis, unspecified organism Status: Resolved Plan: Resolved Patient initially met sepsis criteria due to tachycardia and elevated WBC on admission with known source of sigmoid diverticulitis. 2L bolus of IV fluids and one dose of IV Zosyn 3.375g was given in the ED on . Maintenance fluids given at 140ml/hr Continue IV Zosyn 3.375g Q6hrs (08/21/2017 - ) WBC now 7.6 and vital signs all WNL (3) Nutrition, metabolism, and development symptoms ICD Codes: R63.8 - Other symptoms and signs concerning food and fluid intake Plan: Diet: regular diet Fluids: NS 140mls/hr monitor vitals every 4, monitor I's and O's DVT ppx: Lovenox 40mg subcu daily See the residents documentation for details. I saw and evaluated the patient regarding the north portions of this evaluation and agree with the residents findings and plans as written. Parts of this note were created using [employer] voice recognition software program. While efforts were made to correct any mistakes made by this software, some mistakes, errors, and omissions may remain in the final note that were not caught when the note was originally created. Plan of care was discussed and agreed upon with the patient as specifically documented in the above note. An opportunity to ask questions with explanation was provided. Patient voiced understanding on all information reviewed and discussed. (Nico Valente MD) Problem Qualifiers (1) Diverticulitis of intestine with perforation: Qualified Codes: K57.80 - Diverticulitis of intestine, part unspecified, with perforation and abscess without bleeding (2) Sepsis: Qualified Codes: A41.9 - Sepsis, unspecified organism Crystal Umana MD R2 August 23, 2017 08:53 Nico Valente MD August 23, 2017 14:35
[2017-08-23] MEDS ORDERED: ENOXAPARIN SODIUM 40 MG/0.4 ML SYRINGE SQ SCH (09:00)
[2017-08-23] MEDS: SODIUM CHLORIDE 0.9% FLUSH 10 ML FLUSH IV FLUSH SCH (09:00)
--- NOTE | 2017-08-23 10:25 | PD.CAR.PN ---
CVT Progress Note Subjective/Hospital Course: 08/23/2017 Patient with acute diverticulitis and diverticulosis despite his young age. Abdomen is soft active bowel sounds no rebound no guarding no masses but mild tenderness on deep palpation in left lower quadrant and suprapubic area, consistent with resolving diverticulitis Patient had some tenderness while passing bowel movements Patient should remain on low residue diet and such should be explained to him by dietary service. In addition patient should remain on antibiotics for total of about 2 weeks. Based on his clinical improvement and subjective clinical impression he can be switched from IV to oral antibiotics If there is any question about his ability to take oral antibiotics he is probably better off to be on IV antibiotics for another day or 2 so he does not bounce back Once on oral antibiotics I would suggest Levaquin and Flagyl as a reasonable combination He is to follow-up with my office in about 3-4 weeks and he should be evaluated by [facility] clinical programmer and have full colonoscopy in a few weeks when this settles down In about 2 weeks he should be switched to high residue diet i.e. high-fiber diet In the best case scenario patient will never have problem again if he adheres to the diet, however based on his young age I believe he may have repeated attacks that will eventually require sigmoid resection Discussed with family practice resident Dr. Hall this morning Objective: Vital Signs Date Time Temp Pulse Resp B/P (MAP) Pulse Ox O2 Delivery O2 Flow Rate FiO2 08/23/17 09:10 Room Air 08/23/17 08:00 98.8 80 18 124/76 (92) 99 08/23/17 00:00 98.8 89 20 133/74 (93) 98 08/22/17 20:00 98.7 84 20 125/78 (94) 98 08/22/17 16:00 98.2 97 16 129/90 (103) 98 08/22/17 12:00 98.3 77 15 124/59 (80) 97 Labs: Laboratory Tests Test 08/23/17 05:28 White Blood Count 7.6 TH/MM3 (4.0-11.0) Red Blood Count 4.74 MIL/MM3 (4.50-5.90) Hemoglobin 13.4 GM/DL (13.0-17.0) Hematocrit 40.0 % (39.0-51.0) Mean Corpuscular Volume 84.5 FL (80.0-100.0) Mean Corpuscular Hemoglobin 28.4 PG (27.0-34.0) Mean Corpuscular Hemoglobin Concent 33.6 % (32.0-36.0) Red Cell Distribution Width 13.2 % (11.6-17.2) Platelet Count 319 TH/MM3 (150-450) Mean Platelet Volume 7.2 FL (7.0-11.0) Blood Urea Nitrogen 7 MG/DL (7-18) Creatinine 0.90 MG/DL (0.60-1.30) Random Glucose 93 MG/DL (74-106) Calcium Level 8.7 MG/DL (8.5-10.1) Sodium Level 141 MEQ/L (136-145) Potassium Level 3.7 MEQ/L (3.5-5.1) Chloride Level 110 MEQ/L (98-107) Carbon Dioxide Level 23.0 MEQ/L (21.0-32.0) Anion Gap 8 MEQ/L (5-15) Estimat Glomerular Filtration Rate 95 ML/MIN (>89) Result Diagram: 08/23/17 0528 08/23/17 0528 Raleigh Souza MD August 23, 2017 10:25
--- NOTE | 2017-08-23 10:40 | HHI.DCPOC ---
Discharge Care Plan Diagnosis: (1) Diverticulitis of intestine with perforation (2) Sepsis Goals to Promote Your Health * To prevent worsening of your condition and complications * To maintain your health at the optimal level Directions to Meet Your Goals Take your medications as prescribed Follow your dietary instruction Follow activity as directed Keep your appointments as scheduled Take your immunizations and boosters as scheduled If your symptoms worsen call your PCP, if no PCP go to Urgent Care Center or Emergency Room Smoking is Dangerous to Your Health. Avoid second hand smoke Call the 24-hour hour crisis hotline for domestic abuse at Crystal Umana MD R2 August 23, 2017 10:40
[2017-08-23] MEDS ORDERED: CIPR-9 PO (11:08)
[2017-08-23] MEDS ORDERED: METR-1 PO (11:08)
--- NOTE | 2017-08-23 11:44 | HHI.DS ---
Discharge Summary Admission Date August 21, 2017 at 16:23 Discharge Date: August 23, 2017 Admitting Diagnosis (1) Diverticulitis of intestine with perforation Diagnosis: Principal ICD Codes: K57.80 - Diverticulitis of intestine, part unspecified, with perforation and abscess without bleeding Status: Acute (2) Sepsis Diagnosis: Principal ICD Codes: A41.9 - Sepsis, unspecified organism Status: Resolved Brief History 37 yr old M w/ no significant past medical history presents to the ED with fever and abdominal pain. Accompanied by girlfriend. Patient states that he had been having abdominal pain for the past 4 days. States that his pain started in the lower left quadrant and radiated to the right lower quadrant. He states that it is worsening, especially with food. He rates his pain as 8 out of 10. Patient was recently here 2 days ago 08/19 in the ED for abdominal pain. Patient was diagnosed with constipation. He was prescribed stool softeners, Reglan, and magnesium citrate. He was instructed to return to the ED for worsening symptoms. Reports that he has had a fever of 101 orally at home and chills. He endorses watery diarrhea, over 20 bowel movements a day due to the magnesium citrate. He denies nausea and vomiting. He has not been passing gas, but he has been burping. He endorses shallow breathing due to the pain. He states that his appetite has been normal, but "painful to eat." His last meal was a salad this morning. He denies chest pain, dysuria, back pain, and edema. Patient does not have PCP due to insurance issues. CBC/BMP: 08/23/17 0528 08/23/17 0528 Significant Findings Laboratory Tests Test 08/21/17 12:30 08/21/17 16:45 08/21/17 18:45 08/21/17 19:34 White Blood Count 15.4 TH/MM3 (4.0-11.0) Neutrophils (%) (Auto) 83.2 % (16.0-70.0) Neutrophils # (Auto) 12.8 TH/MM3 (1.8-7.7) Monocytes # (Auto) 1.0 TH/MM3 (0-0.9) Activated Partial Thromboplast Time 33.4 SEC (24.3-30.1) Total Protein 8.5 GM/DL (6.4-8.2) Aspartate Amino Transf (AST/SGOT) 9 U/L (15-37) Sodium Level 133 MEQ/L (136-145) Estimat Glomerular Filtration Rate 84 ML/MIN (>89) Lipase 61 U/L (73-393) Urine Ketones 10 mg/dL (NEG) Urine Occult Blood TRACE (NEG) Urine Bacteria RARE /hpf (NONE) Urine Cannabinoids Screen POS (NEG) Test 08/21/17 19:55 08/22/17 04:49 08/23/17 05:28 Neutrophils (%) (Auto) 80.5 % (16.0-70.0) Monocytes (%) (Auto) 9.2 % (0.0-8.0) Lymphocytes # (Auto) 0.9 TH/MM3 (1.0-4.8) Chloride Level 110 MEQ/L (98-107) Imaging Last 72 hours Impressions Abdomen/Pelvis CT 08/21/17 1221 Signed Impressions: Service Date/Time: Wednesday, August 21, 2017 15:27 - CONCLUSION: 1. Findings consistent with moderate severity sigmoid diverticulitis and focal contained perforation. No definite abscess at this time although patient is at risk for developing abscess. Recommend repeat CT examination if patient does not improve or progress as expected on antibiotics. 2. Mild small bowel adynamic ileus. Noe Szymanski MD PE at Discharge GENERAL: This is a well-nourished, well-developed patient, in no apparent distress. SKIN: No rashes, ecchymoses or lesions. Cool and dry. CARDIOVASCULAR: Regular rate and rhythm without murmurs, gallops, or rubs. RESPIRATORY: Clear to auscultation. Breath sounds equal bilaterally. No wheezes , rales, or rhonchi. GASTROINTESTINAL: Abdomen soft, mild tenderness in the LLQ and RLQ. No hepato- splenomegaly, or palpable masses. No rebound or guarding. Positive bowel sounds. MUSCULOSKELETAL: Extremities without clubbing, cyanosis, or edema. NEUROLOGICAL: Awake and alert. Normal speech. Hospital Course Patient was treated for the acute diverticulitis/perforation with IV Zosyn, bowel rest, and IV fluids and showed marked clinical improvement by the second day of admission. General surgery was consulted and recommended continued medical management and low residue diet for 2 weeks. By the 3rd day of admission , he was doing much better and only had abdominal pain with moderate palpation. He was deemed stable for discharge due to being afebrile, with no nausea/ vomiting, and tolerating PO intake. He is to complete a total 14-day course of antibiotic therapy and would need to be seen by a PCP within a week. Patient will also follow up with general surgery and is to have a colonoscopy in 1 month on complete resolution of the diverticulitis/perforation. Pt Condition on Discharge: Stable Discharge Disposition: Discharge Home Discharge Instructions DIET: Follow Instructions for: Low Fiber Diet Additional Diet Instructions: Low residue diet for 2 weeks Activities you can perform: See Additionl Instruction Activities to Avoid: Strenuous Activity Other Activity Instructions: Avoid strenous activity, no heavy lifting for 1 month Follow up Referrals: Appointment for Follow Up - 3-5 Days @ [facility] Colonoscopy - 1 Month PCP Follow-up - 2-3 Days with [facility] Surgical - 1 Week with Raleigh Souza MD New Medications: Ciprofloxacin (Cipro) 500 Mg Tab 500 MG PO Q12HR for Infection for 12 Days, #24 TAB 0 Refills Metronidazole (Flagyl) 500 Mg Tab 500 MG PO Q8HR for Infection for 12 Days, #36 TAB 0 Refills Discontinued Medications: Magnesium Citrate Liq (Magnesium Citrate Liq) 300 Ml Liq 300 ML PO DIRECTED, BOTTLE 0 Refills Metoclopramide (Reglan) 5 Mg Tab 5 MG PO TID, #9 TAB 0 Refills Crystal Umana MD R2 August 23, 2017 11:43
[2017-08-23 12:00] VITALS: BP 124/61; PULSE 69; RESP 19; TEMP 98.2; O2SAT 98
== END 2017-08-23 15:02 | disposition home or self-care (01) | DRG 872 ==
LOC: NEPC 12:07 → NEDA 16:23 → N03A 19:44 → N07B 08-22 09:36
PROVIDERS: ADMIT Family Medicine; ATTEND Family Medicine
DX: A41.9 Sepsis, unspecified organism (principal); K57.20 Diverticulitis of large intestine with perforation and abscess without bleeding; F17.210 Nicotine dependence, cigarettes, uncomplicated; F12.90 Cannabis use, unspecified, uncomplicated
CPT/HCPCS: 74177; 80048; 80053; 80307; 81001; 82272; 83605; 83690; 85025; 85027; 85610; 85730; 86850; 86900; 86901; 87040; 87493; 87641; 93005; 96361; 96374; J0131; J1650; J1885; J2543; J2765; J7030; Q9963; Q9967